=== PATIENT | female | born 1955 | race Caucasian/White ===

== ENCOUNTER 2018-02-08 08:37 | Inpatient (IN) | payer OTHER ==
[~2018-02-08 08:37] MED LIST: *PREOP 1000MG*TRANEX ACID/NS 100 ML IV ONE; TRANEXAMIC ACID 1,000 MG in NS (SYRINGE) 50 ML IV ONE
[2018-02-08] MEDS ORDERED: CHLORHEXIDINE GLUC HIBICLENS 118 ML BTL TP ONE (08:52)
[2018-02-08] MEDS ORDERED: THROMBIN (BOVINE) 20,000 UNIT VIAL TP ONE (08:52)
[2018-02-08] MEDS ORDERED: BUPIVACAINE 0.25% 30 ML SDV ONE (08:53)
[2018-02-08] MEDS ORDERED: CITRATE DEXTROSE SOLN 500 ML BAG ONE (08:53)
[2018-02-08] MEDS ORDERED: BACITRACIN 50,000 UNITS/10 ML SYR IRR ONE ×2 (08:54→11:57)
[2018-02-08] MEDS ORDERED: EPINEPHrine 1 MG/ML INJ ONE (08:54)
[2018-02-08] MEDS ORDERED: GABAPENTIN 300 MG CAP PO ONE ×2 (09:10→09:58)
[2018-02-08] MEDS ORDERED: morphINE PF 0.2 MG in SYRINGE INTRATHECAL 1 SYR IT ONE (09:10)
[2018-02-08] MEDS ORDERED: ceFAZolin 2 GM/SWFI 2 GM/20 ML SYR IVP ONE (09:10)
[2018-02-08] MEDS ORDERED: fentaNYL 50 MCG in SYRINGE INTRATHECAL 1 SYR IT ONE (09:10)
[2018-02-08] MEDS ORDERED: ACETAMINOPHEN 500 MG TAB PO ONE ×2 (09:10→09:58)
[2018-02-08] MEDS ORDERED: LR 1,000 ML IV ONE (09:11)
[2018-02-08] MEDS ORDERED: ALBUTEROL 3 ML DEYVIAL IH PRN (09:16)
[2018-02-08] MEDS ORDERED: PROMETHAZINE HCL 25 MG/ML INJ IVP PRN (09:16)
[2018-02-08] MEDS ORDERED: MIDAZOLAM 2 MG/2 ML VIAL IVP ONE (09:16)
[2018-02-08] MEDS ORDERED: fentaNYL 100 MCG/2 ML INJ IVP PRN (09:16)
[2018-02-08] MEDS ORDERED: NALOXONE HCL 0.4 MG/ML INJ IVP PRN ×3 (09:16→14:53)
[2018-02-08] MEDS ORDERED: LR 500 ML IV PRN (09:16)
[2018-02-08] MEDS ORDERED: HYDROmorphONE/DILAUDID 2 MG/ML INJ IVP PRN (09:16)
[2018-02-08] MEDS ORDERED: oxyCODONE IR 5 MG TAB PO PRN (09:16)
[2018-02-08] MEDS ORDERED: ONDANSETRON 4 MG/2 ML VIAL IVP PRN (09:16)
--- NOTE | 2018-02-08 09:20 | PDANEPAE ---
ANE History of Present Illness Lumbar TLIF L3-4 ANE Past Medical History - Cardiovascular History Hx Hypertension: No Hx Arrhythmias: No Hx Chest Pain: No Hx Coronary Artery / Peripheral Vascular Disease: No Hx CHF / Valvular Disease: No Hx Palpitations: No Cardiovascular History Comment: ONGOING PAIN L CHEST ABOVE L BREAST/L SHOULDER- TX W/GABAPENTIN- NERVE PAIN. HYPOTENSION - Pulmonary History Hx COPD: No Hx Asthma/Reactive Airway Disease: No Hx Recent Upper Respiratory Infection: No Hx Oxygen in Use at Home: No Hx Sleep Apnea: No Sleep Apnea Screening Result - Last Documented: Negative - Neurologic History Hx Cerebrovascular Accident: No Hx Seizures: No Hx Dementia: No Neurologic History Comment: MIGRAINE H/A - Endocrine History Hx Diabetes: No - Renal History Hx Renal Disorders: No - Liver History Hx Hepatic Disorders: No - Neurological & Psychiatric Hx Hx Neurological and Psychiatric Disorders: Yes Neurological / Psychiatric History Comment: "TIGHTNESS" IN LOW BACK -PAIN RADIATES DOWN R BUTTOCK, R LEG. CAN RADIATE TO L SIDE. TINGLING IN THIGHS. - Cancer History Hx Cancer: No - Congenital Disorder History Hx Congenital Disorders: No - GI History Hx Gastrointestinal Disorders: No - Other Health History Other Health History: "NO BREAKOUT W/SHINGLES SINCE AGE 28 -DID HAVE BREAKOUT IN BACK AREA" - Chronic Pain History Chronic Pain: Yes (LOW BACK/R LEG) - Surgical History Prior Surgeries: BILAT BREASTS:REMOVED ENCASED IMPLANTS, RECONSTRUCTED BILAT BREAST. L4/L5 FUSION. BREAST SX X3. HYSTERECTOMY. BILAT OOPHORECTOMY. T.L. FEET SX ANE Review of Systems Review of Systems: - Exercise capacity METS (RN): 4 METS ANE Patient History - Allergies Allergies/Adverse Reactions: adhesive tape Allergy (Verified 02/02/18 10:29) BEE STING Allergy (Uncoded 01/26/18 11:33) - Home Medications Home Medications: Acetaminophen [Tylenol 325mg (*)] 325 mg PO Q6 PRN 01/26/18 [Last Taken 1 Week Ago ~02/01/18] EPINEPHrine [Epipen 0.3 MG] 0.3 mg IM ONCE PRN 01/26/18 [Last Taken 1 Year Ago ~ 02/08/17] Gabapentin [Neurontin 400 MG (*)] 800 mg PO TID 01/26/18 [Last Taken 02/07/18 19 :30] Sumatriptan Succinate [Imitrex] 100 mg PO DAILY PRN 01/26/18 [Last Taken 1 Week Ago ~02/01/18] Tears/Dextran 70/Hypromellose [Natural Balance Tears (*)] 1 drop EACHEYE Q2 PRN 01/26/18 [Last Taken 02/07/18 20:00] Topiramate [Topamax 25MG (*)] 75 mg PO HS 01/26/18 [Last Taken 02/07/18 19:30] - Smoking Hx Smoking Status: Never smoked ANE Labs/Vital Signs - Vital Signs Height: 167.64 cm Weight: 77.564 kg
[2018-02-08] MEDS: LIDOCAINE 1% 2 ML INJ ID PRN ×2 (09:28→09:38)
[2018-02-08] MEDS ORDERED: REMIFENTANIL HCL 1 MG VIAL ONE ×3 (09:51→09:52)
[2018-02-08] MEDS ORDERED: PROPOFOL/EMULSION 500 MG/50 ML BOTTLE IV ONE ×3 (09:52)
[2018-02-08] MEDS ORDERED: ceFAZolin 2 GM/DEXTROSE 100 ML IV ONE (09:58)
[2018-02-08] MEDS ORDERED: TRANEXAMIC ACID 1,000 MG in NS (SYRINGE) 50 ML IV ONE (09:58)
--- NOTE | 2018-02-08 09:59 | PDHPUP ---
History & Physical Update H&P update statement: This history and physical update is based on an assessment of the patient which was completed after admission or registration (within 24 hours), but prior to the surgery/procedure. H&P update: H&P reviewed & patient examined, no change in patient's condition since H&P completed
[2018-02-08] MEDS ORDERED: PHENYLEPHRINE HCL 100 MCG/ML SYR ONE ×2 (12:36)
[2018-02-08] MEDS ORDERED: ceFAZolin 1 GM VIAL ONE (13:56)
[2018-02-08] MEDS ORDERED: ONDANSETRON 4 MG/2 ML VIAL ONE (13:59)
[2018-02-08] MEDS ORDERED: RANITIDINE 50 MG/2 ML VIAL ONE (13:59)
[2018-02-08] MEDS ORDERED: DEXAMETHASONE 4 MG/ML VIAL ONE ×2 (13:59)
[2018-02-08] MEDS ORDERED: MAGNESIUM HYDROXIDE 30 ML UDCUP PO PRN (14:16)
[2018-02-08] MEDS ORDERED: ONDANSETRON DISINTEGRATING 4 MG TAB PO PRN (14:16)
[2018-02-08] MEDS ORDERED: LACTULOSE 20 GM/30 ML UDCUP PO PRN (14:16)
[2018-02-08] MEDS ORDERED: HYDROCODONE/APAP 5/325 TAB PO PRN (14:16)
[2018-02-08] MEDS ORDERED: diphenhydrAMINE 25 MG CAP PO PRN (14:16)
[2018-02-08] MEDS ORDERED: morphINE PCA 30 MG/30 ML PCA IV PRN (14:16)
[2018-02-08] MEDS ORDERED: TEARS/DEXTRAN 70/HYPROMELLOSE 15 ML OPHT.BTL EACHEYE PRN (14:16)
[2018-02-08] MEDS ORDERED: BISACODYL 10 MG SUPP PR PRN (14:16)
--- NOTE | 2018-02-08 14:22 | POSTOPPROG ---
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
--- NOTE | 2018-02-08 14:23 | SOAPPROG ---
SOAP Progress Note Assessment/Plan: Assessment: 63 yo F sp L3/4 TLIF, L4/5 hardware removal, L3-5 fusion Plan: stable PT/OT LSO brace out of bed lovenox starts POD #1 please call with neuro changes seen by DR Gillette 02/08/18 14:22 Subjective: + back pain, no leg pain Objective: Vital Signs Temp Pulse Resp BP Pulse Ox 36.4 C 52 L 16 132/72 H 97 02/08/18 09:39 02/08/18 09:39 02/08/18 09:39 02/08/18 09:39 02/08/18 09:39 awake, alert PERRL, EOMI EDMUNDO x 4, 5/5 LE + light touch ICD10 Worksheet Patient Problems: Problems Problem Status Onset Fusion of spine of lumbar region Acute - ICD10 Problem Qualifiers (1) Fusion of spine of lumbar region
--- NOTE | 2018-02-08 14:25 | POSTANESTH ---
Post Anesthetic Evaluation Cardiovascular Status: Normal, Stable Respiratory Status: Similar to Pre-op Cond. Level of Consciousness/Mental Status: Can Participate in Eval, Alert and Oriented Pain Control: Adequate, Prn Tx Ordered Nausea/Vomiting Control: Adequate, Prn Tx Ordered Complications Possibly Related to Anesthesia: None Noted
[2018-02-08] MEDS ORDERED: NS W/ 20 KCl/L 1,000 ML IV SCH (14:30)
[2018-02-08] MEDS ORDERED: HYDROmorphONE/DILAUDID 1 MG/ML INJ ONE (14:41)
[2018-02-08] MEDS ORDERED: fentaNYL 100 MCG/2 ML INJ ONE (14:42)
[2018-02-08] MEDS: fentaNYL 100 MCG/2 ML INJ IVP PRN ×2 (14:45→15:31)
[2018-02-08] MEDS: HYDROmorphONE/DILAUDID 2 MG/ML INJ IVP PRN ×2 (14:54→15:16)
--- NOTE | 2018-02-08 15:24 | GOP ---
[f rep st] OPERATIVE REPORT DATE OF OPERATION: 02/08/2018 SURGEON: Tom Cerda MD DEPARTMENT COORDINATOR: Terence Kang P.A.-C. ANESTHESIA: General endotracheal. PREOPERATIVE DIAGNOSIS: Severe adjacent level degeneration and critical spinal stenosis at L3-4, sta tus post prior instrumented L4-5 decompression and stabilization. Intractable back pain and right gr eater than left lower extremity radiculopathy. Intractable neurogenic claudication. Failed conserva tive care. POSTOPERATIVE DIAGNOSIS: Severe adjacent level degeneration and critical spinal stenosis at L3-4, st atus post prior instrumented L4-5 decompression and stabilization. Intractable back pain and right g reater than left lower extremity radiculopathy. Intractable neurogenic claudication. Failed conserv ative care. PROCEDURE PERFORMED: Removal of posterior nonsegmental (pedicle screw and axle device) fixation at L 4-5 with exploration of spinal fusion at the same level and re-instrumentation from L3 to L5 with pos terior segmental (pedicle screw) fixation. L3-5 posterior lateral fusion. L3-4 right-sided far late ral transpedicular decompression with L3-4 posterior/transforaminal lumbar interbody fusion with 2 st ructural PEEK interbody spacers, local autograft and bone morphogenic protein. Use of intraoperative microscopy, fluoroscopy and computer volumetric stereotactic navigation with intraoperative neurophy siologic testing. Injection of intrathecal narcotic analgesics and subcutaneous and intramuscular lo imtiaz anesthesia for postoperative pain control. FINDINGS: ESTIMATED BLOOD LOSS: 275 cc. INDICATIONS: The patient is a 63-year-old woman with intractable low back pain and right lower great er than left lower extremity radicular and neurogenic claudication symptoms secondary to severe degen erative joint disease and critical spinal stenosis at L3-4, status post prior L4-5 instrumented decom pression and fusion. She presents now for removal and replacement of instrumentation and extension o f the decompression and fusion stabilization. DESCRIPTION OF PROCEDURE: After informed consent was obtained, patient was taken to the operating ro om and placed in a prone position on the Bradley table. The lumbosacral area was prepped and draped in a sterile fashion. After fluoroscopic localization of the correct levels, the subcutaneous and in tramuscular tissues were infiltrated with local anesthesia. A midline linear incision was then creat ed from approximately L3-L5. This was carried down to the fascial layer, which was incised using the monopolar electrocautery down the spinous processes and out the lamina bilaterally. Intraoperative fluoroscopy was again utilized to verify the correct levels. Following this, the prior instrumentati on was identified at L4-5 and carefully removed and the prior fusion explored and inspected and noted to be solid. The microscope was then brought in and a right-sided far lateral transpedicular decomp ression was performed at the L3-4 level with complete unroofing of the facet joint and neural foramen at L3 and L4 and a redo posterior hemilaminectomy and foraminotomy was performed at the L4-5 level i n order to ensure that this is not contributing to her symptoms. Following adequate decompression, [employer] neuronavigational system was brought in and using computer volumetric stereotactic navigat ion, pedicle screws were placed at L3 and L4 bilaterally and L5 on the right. The rods were then janis marina and secured under distraction, during which time a complete diskectomy was performed at the L3-4 level with preparation of the endplates and placement of 2 structural PEEK interbody spacers, local a utograft and bone morphogenic protein as well as morselized allograft for an L3-4 posterior/transfora ashley lumbar interbody fusion. The screw and jennifer system were then placed in a slight amount of compr ession across the interspace and the wound was copiously irrigated again with antibiotic irrigation a nd meticulous hemostasis was achieved. The remaining facet joints and lamina were then extensively d ecorticated especially on the left from L3-L5 and the residual local autograft along with bone morpho genic protein and morselized allograft was placed out laterally for posterolateral fusion at L3-4 and L4-5. A drain was then placed and after re-verification of good position of the screws, rods and in terbody spacers using biplanar fluoroscopy, the wound was closed in layered fashion using interrupted Vicryl sutures followed by Steri-Strips on the skin. COMPLICATIONS: None. DISPOSITION: The patient was extubated and transferred to the recovery room in stable condition. /[id number]/MODL
[2018-02-08] MEDS ORDERED: DIAZEPAM 5 MG TAB ONE (15:46)
[2018-02-08] MEDS: DIAZEPAM 5 MG TAB PO PRN (15:47)
[2018-02-08] MEDS ORDERED: SUMAtriptan 50 MG TAB PO PRN (16:00)
[2018-02-08] MEDS: POLYETHYLENE GLYCOL 3350 17 GM PKT PO SCH ×2 (17:03→21:28)
[2018-02-08] MEDS: GABAPENTIN 400 MG CAP PO SCH ×2 (17:03→21:27)
[2018-02-08] MEDS: ceFAZolin 2 GM in D5W 100 ML IV SCH (18:37)
[2018-02-08] MEDS: oxyCODONE IR 5 MG TAB PO PRN ×2 (18:50→23:45)
--- NOTE | 2018-02-08 19:00 | PDMN ---
Medical Necessity Medical necessity: IP surgery per [facility] cpt 56638, 70680, [id number], 29892 TLIF, hardware removal, exploration of fusion
[2018-02-08] MEDS: SENNOSIDES/DOCUSATE SODIUM TAB PO SCH (21:27)
[2018-02-08] MEDS: TOPIRAMATE 25 MG TAB PO SCH (21:27)
[2018-02-08] MEDS: METHOCARBAMOL 750 MG TAB PO PRN (21:27)
[2018-02-08] MEDS: FAMOTIDINE 20 MG TAB PO SCH (21:27)
[2018-02-08] MEDS: morphINE SR 30 MG TAB PO SCH (21:27)
[2018-02-08] MEDS: ACETAMINOPHEN 500 MG TAB PO SCH (21:28)
[2018-02-08] MEDS ORDERED: ceFAZolin 2 GM/DEXTROSE 100 ML IV SCH (22:00)
[2018-02-09] MEDS: DIAZEPAM 5 MG TAB PO PRN (02:53)
[2018-02-09] MEDS: ceFAZolin 2 GM in D5W 100 ML IV SCH (02:53)
[2018-02-09 05:09] LABS: PLATELET COUNT 229 10^3/uL (150-400)
[2018-02-09] MEDS: oxyCODONE IR 5 MG TAB PO PRN ×2 (05:29→16:16)
[2018-02-09] MEDS: METHOCARBAMOL 750 MG TAB PO PRN ×2 (05:29→12:23)
[2018-02-09] MEDS: ACETAMINOPHEN 500 MG TAB PO SCH ×3 (05:30→21:57)
--- NOTE | 2018-02-09 07:16 | SOAPPROG ---
SOAP Progress Note Assessment/Plan: Assessment: 63 yo F POD #2 L3/4 TLIF, L4/5 hardware removal, L3-5 fusion Plan: stable and doing well overall PT/OT x-rays today HARPER x 1 to thumbprint suction LSO brace out of bed scd/sukhwinder/lovenox for dvt prophylaxis please call with neuro changes seen by DR Gillette 02/08/18 14:22 02/09/18 07:15 02/09/18 07:16 Subjective: continued back pain, no leg pain. no weakness. Objective: Vital Signs Temp Pulse Resp BP Pulse Ox 36 C 50 L 16 101/58 L 98 02/09/18 05:46 02/09/18 04:51 02/09/18 04:51 02/09/18 04:51 02/09/18 04:51 Laboratory Results 02/09/18 04:53 02/09/18 04:53 02/08/18 02/09/18 02/10/18 05:59 05:59 05:59 Intake Total 3743 Output Total 5335 Balance -1592 AAOX4, +FC PERRL, EOMI, no facial droop 5/5 + light touch C/D/I ICD10 Worksheet Patient Problems: Problems Problem Status Onset Fusion of spine of lumbar region Acute - ICD10 Problem Qualifiers (1) Fusion of spine of lumbar region
[2018-02-09] MEDS: ENOXAPARIN 40 MG/0.4 ML SYR SC SCH (09:17)
[2018-02-09] MEDS: morphINE SR 30 MG TAB PO SCH ×2 (09:18→20:19)
[2018-02-09] MEDS: GABAPENTIN 400 MG CAP PO SCH ×3 (09:18→21:58)
[2018-02-09] MEDS: FAMOTIDINE 20 MG TAB PO SCH ×2 (09:18→20:20)
[2018-02-09] MEDS: POLYETHYLENE GLYCOL 3350 17 GM PKT PO SCH ×3 (09:18→21:59)
[2018-02-09] MEDS: SENNOSIDES/DOCUSATE SODIUM TAB PO SCH ×2 (09:18→20:20)
--- NOTE | 2018-02-09 12:08 | ASMTCMCOM ---
CM Note CM Note Notes: Patient is POD #2 L3/4 TLIF, L4/5 hardware removal, L3-5 fusion. She is stable and doign well overall. She lives independently with her . PT/OT evals are pending, but per RN, patient may not have any discharge needs. Case Management is available to assist if needed. Date Signed: 02/09/2018 12:07 PM Electronically Signed By:Deedee Leblanc RN
[2018-02-09] MEDS: TOPIRAMATE 25 MG TAB PO SCH (20:20)
[2018-02-09] MEDS: ONDANSETRON 4 MG/2 ML VIAL IVP PRN (22:56)
[2018-02-10] MEDS: ONDANSETRON 4 MG/2 ML VIAL IVP PRN (05:16)
[2018-02-10] MEDS: oxyCODONE IR 5 MG TAB PO PRN ×2 (05:20→21:03)
[2018-02-10] MEDS: METHOCARBAMOL 750 MG TAB PO PRN ×2 (05:20→21:03)
[2018-02-10] MEDS: ACETAMINOPHEN 500 MG TAB PO SCH ×3 (06:00→21:02)
--- NOTE | 2018-02-10 08:21 | CPEKG ---
Heart Rate: 74 RR Interval: 811 P-R Interval: 152 QRSD Interval: 94 QT Interval: 424 QTC Interval: 471 P Seaside: 37 QRS Seaside: 28 T Wave Seaside: 47 EKG Severity - OTHERWISE NORMAL ECG - EKG Impression: SINUS RHYTHM EKG Impression: VENTRICULAR PREMATURE COMPLEX Electronically Signed By: Brayden Hyde 11-Feb-2018 15:28:57
[2018-02-10] MEDS ORDERED: PROMETHAZINE HCL 25 MG/ML INJ ONE (08:26)
[2018-02-10 08:27] LABS: PLATELET COUNT 208 10^3/uL (150-400)
[2018-02-10 08:35] LABS: INR 0.97 (0.83-1.16); PROTIME(PATIENT) 13.1 SEC (12.0-15.0)
[2018-02-10] MEDS ORDERED: NS 1,000 ML IV ONE (08:42)
[2018-02-10] MEDS ORDERED: ATROPINE SULFATE 1 MG/10 ML SYR ONE (09:29)
--- NOTE | 2018-02-10 09:40 | SOAPPROG ---
SOAP Progress Note Assessment/Plan: Assessment: 63 yo F POD #2 L3/4 TLIF, L4/5 hardware removal, L3-5 fusion Plan: Episode of junctional bradycardia this am with HR in 20-30s and BP of 44/22. Stat team activated and HR improved with 0.5 mg of atropine IVF rapid infusion with improved BP. Dr Harper consulted for symptomatc bradycardia PT/OT x-rays look good HARPER x 1 to thumbprint suction LSO brace out of bed scd/sukhwinder/lovenox for dvt prophylaxis please call with neuro changes discussed with DR Gillette 02/08/18 14:22 02/09/18 07:15 02/09/18 07:16 02/10/18 09:37 02/10/18 09:39 Subjective: minimal back pain. no leg pain. Nausea this am. No chest pain or shortness of breath. Objective: Vital Signs Temp Pulse Resp BP Pulse Ox 36.4 C 75 8 L 85/59 L 99 02/10/18 08:00 02/10/18 08:00 02/10/18 08:00 02/10/18 08:00 02/10/18 08:00 Laboratory Results 02/10/18 08:20 02/10/18 08:20 02/09/18 02/10/18 02/11/18 05:59 05:59 05:59 Intake Total 3743 700 500 Output Total 5335 700 Balance -1592 0 500 PT 13.1 SEC (12.0-15.0) 02/10/18 08:20 INR 0.97 (0.83-1.16) 02/10/18 08:20 awake, alert PERRL, no facial droop EDMUNDO x 4 + light touch ICD10 Worksheet Patient Problems: Problems Problem Status Onset Fusion of spine of lumbar region Acute - ICD10 Problem Qualifiers (1) Fusion of spine of lumbar region
--- NOTE | 2018-02-10 10:02 | GCON ---
[f rep st] CONSULTATION DATE OF CONSULTATION: 02/10/2018 REASON FOR CONSULTATION: I was asked by Dr. Cerda to see the patient in regard to a syncopal episode with associated bradycardia and hypotension. HISTORY OF PRESENT ILLNESS: This is a 63-year-old female who underwent a lumbar spine surgery [address] Cerda[address] This involved hardware removal at L4-5, 3-4, with an L3 to 5 fusion. The re were no complications reported. Notes from yesterday and even this morning indicate that she was stable and doing well overall. She got up to go to the bathroom this morning, accompanied by her siri se, came back to the bed, was feeling nauseous, and had a syncopal episode. She describes it as the room going black. There are no permanent records of this, but reports of her pulse being around 30 w ith a junctional bradycardia on cardiac monitoring. Her blood pressure was reported as around 45/20 at the time. She received 0.5 mg of atropine, as well as a liter of normal saline. I was then shore d urgently to bedside and noted her to be lying in bed, alert and oriented, with a blood pressure of about 80/50. She was feeling much better at the time. She denied any chest pain or shortness of ze ath. She tells me that she had 1 episode of syncope about 19 months ago after a previous surgery. S he also notes that she does feel short of breath after walking her dogs, although her exercise tolera nce has not changed, and she is able to walk a few miles at a good pace without getting short of percy th or having any chest pain at baseline. She has no known cardiac history. She has never seen a car diologist, never had a stress test, never had any cardiac monitoring. I was called to re-evaluate the patient about 30 minutes after I initially saw her for ongoing somnol ence. She had received some Phenergan for nausea. When I re-evaluated her, she is notably different , with no focal neurologic deficits, although she is quite somnolent and falling asleep. PAST MEDICAL/SURGICAL HISTORY: 1. Migraines. 2. Previous L4-5 TLIF in 2016. MEDICATIONS: Please see medication reconciliation. ALLERGIES: Adhesive tape and bee stings. SOCIAL HISTORY: She lives on [address] [place] with her . She does not drink or smoke. FAMILY HISTORY: She denies any early cardiac disease. REVIEW OF SYSTEMS: Ten-point review of systems is conducted and is negative, except per HPI. PHYSICAL EXAM: VITAL SIGNS: Blood pressure as reported per HPI. When I was seeing her, about 80/50 . Heart rate is around 78, respiration rate 16, saturating at 100% on 2 L. She was recorded on room air overnight. Temperature is 36.4. GENERAL: The patient is a pleasant female who is in no acute distress. HEENT: Normocephalic, atraumatic. CARDIOVASCULAR: Regular rate and rhythm. There are n o murmurs, rubs, or gallops, although she has a distant S1 and S2. PULMONARY: Lungs clear to auscul tation bilaterally. She is breathing comfortably. ABDOMEN: Soft, nontender, nondistended. SKIN: No rash. : Exam shows no Stephens. NEUROLOGIC: Exam showed her to be initially alert and oriented x3. Cranial nerves 2-12 are grossly intact. Motor is about 4/5 but symmetric bilaterally in upper a nd lower extremities. PSYCHIATRIC: Exam shows a normal mood and affect. LABS: Hemoglobin 13, stable from the day previous. INR 0.9. Basic metabolic panel is normal. LFTs are normal. Troponin is negative. Albumin is 2.9. DATA: 1. I personally reviewed and interpreted her ECG. This shows sinus rhythm. She has a premature atr ial beat. There are no ST changes or signs of an old VA, including Q-waves or abnormal T-waves. 2. I discussed this with Terence Kang. 3. I reviewed her postoperative lumbar spine film that shows no hardware complication in her surgery . IMPRESSION/PLAN: 1. Syncope: Most likely, this is vagal given the overall setting of nausea, postop, increased narco tic use, hypotension and bradycardia. Given how dramatic this was, will work up further at this poin t. I have ordered stat echocardiogram, stat CT angio of her chest, trend troponins, telemetry monito ring, transfer to ICU. I will follow up on these studies as ordered. She has received 1 L of normal saline. I will give her another. She is now quite somnolent. I suspect that long-acting morphine is playing a big role in this as well. I have stopped this for now, as well as other sedating medica tions. She is opiate naive per her med rec. I do not suspect an acute stroke, although I will order a head CT given her somnolence. She has nothing focal to indicate a stroke, and risks of tPA far ou tweigh any benefits at this point. 2. Migraines: Continue her home medications. BILLING: I spent a total of 55 minutes of critical care time managing the patient for above syncope, marked hypotension, and bradycardia. Thank you for involving Hospital Medicine in the care of the patient. We will continue to follow trey jacobo. /[id number]/MODL
[2018-02-10] MEDS ORDERED: IOPAMIDOL (ISOVUE 370) 100 ML BTL IV ONE (11:54)
--- NOTE | 2018-02-10 11:54 | ECHO ---
[email or web address] [address] Main: [phone] Fax: Transthoracic Echocardiogram Name: SHAKIRA ROMAN MR#: [id number] Study Date: 02/10/2018 Study Time: 09:05 AM Date of : 1955 Age: 63 year(s) Height: 167.6 cm (66 in.) Weight: 77.57 kg (171 lb.) BSA: 1.87 m2 Gender: Female Examination: Echo Indication: stat echo for syncope Image Quality: Contrast: Requested by: Prashant Harper BP: 82 mmHg/54 mmHg Heart Rate: Rhythm: Normal sinus rhythm Indication: stat echo for syncope Procedure Staff Senior Medical Transcriptionist: Coleen Garcia [facility] Reading Physician: Mazin Kennedy MD Requesting Provider: Conclusions: No pericardial effusion. Preserved left ventricular systolic function. Flattening of the interventricular septum during respiration. Normal right ventricular size and function. Right ventricular systolic pressure 29 mm of mercury. Measurements: Chambers Valvular Assessment AV/MV Valvular Assessment TV/PV Normal Normal Normal Name Value Range Name Value Range Name Value Range Ao Samia (MM): 3.0 cm (2.2 cm-3.7 AV Vmax: 1.24 m/s (1 m/s-1.7 TR Vmax: 2.44 mm/s ( - ) cm) m/s) TR PGmax: 24 mmHg ( - ) IVSd (2D): 0.9 cm (0.6 cm-1.1 AV maxP mmHg ( - ) syst. PAP: 29 mmHg ( - ) cm) LVOT Vmax: 0.89 m/s (0.7 m/s-1.1 PV Vmax: 1.00 m/s (0.6 m/s-0.9 LVDd (2D): 4.8 cm (3.9 cm-5.3 m/s) m/s) cm) MV E Vmax: 0.74 m/s ( - ) PV PGmax: 4 mmHg ( - ) LVDs (2D): 3.5 cm (2.1 cm-4 MV A Vmax: 0.81 m/s ( - ) cm) MV E/A: 0.91 ( - ) LVPWd (2D): 1.0 cm ( - ) LVEF (2D): 54 (>=54 %) Continued Measurements: Valvular Assessment AV/MV Valvular Assessment TV/PV Name Value Name Value MV DecTime: 208 m/s CVP (est.): 5 mmHg MV E/E' Lateral: 9.90 Additional Vessels Name Value Patient: SHAKIRA ROMAN Study Date: 02/10/2018 Page 1 of 2 09:05 AM Ao Ascendin.2 cm Findings: Left Ventricle: Normal size left ventricle. No LV hypertrophy. Normal global systolic LV function. EF is 54 %. IVS was flattened when the patient was snoring. Right Ventricle: Normal size right ventricle. Normal RV function. Left Atrium: The left atrium is normal in size. Right Atrium: The right atrium is normal in size. Mitral Valve: The mitral valve is normal in appearance. Trivial to mild mitral regurgitation. No mitral stenosis is present. Aortic Valve: The aortic valve is tri-leaflet and functions normally. There is no aortic valve regurgitation. No aortic valve stenosis is present. Tricuspid Valve: The tricuspid valve is normal in appearance and function. Mild tricuspid regurgitation is present. The pulmonary artery pressure is normal. Right ventricular systolic pressure measures 29mmHg. The tricuspid regurgitation was trivial then increased to mild to moderate when snoring. Pulmonic Valve: The pulmonic valve is normal in appearance and function. Trivial to mild pulmonic valve regurgitation. Aorta: Normal size aortic root measuring 3.0 cm. Normal size ascending aorta measuring 3.2 cm. Pericardium: No pericardial effusion. (No Signature Object) Patient: SHAKIRA ROMAN Study Date: 02/10/2018 Page 2 of 2 09:05 AM [id number]
--- NOTE | 2018-02-10 12:58 | GCON ---
[f rep st] CONSULTATION CRITICAL CARE CONSULT DATE OF CONSULTATION: 02/10/2018 HISTORY OF PRESENT ILLNESS: This patient is a 63-year-old female who underwent spine surgery 2 days ago involving the L3 through L5 region. There was hardware removal followed by posterior fusion. Th ere were no intraoperative complications. She appeared to be doing quite well until early this morni ng. She was returning back to bed from going to the bathroom and had a syncopal event reportedly ass ociated with a blood pressure in the 40s and a heart rate of about 30. She quickly recovered from th is and apparently was speaking to the hospitalist, who was called on scene, and subsequently had Phen ergan and became quite somnolent. She has never had episodes like this in the past. There is no kno wn cardiac history and was appropriately treated with appropriate prophylaxis. She was transferred t o the intensive care unit where I saw her. She was unable to answer any questions, though she did ar ouse fairly easily. REVIEW OF SYSTEMS: Otherwise negative. PAST MEDICAL HISTORY: Includes breast cancer, migraines, fibroids, and endometriosis. PAST SURGICAL HISTORY: 1. Includes bilateral mastectomy as well as reconstruction with subsequent removal. 2. YAMIL-BSO. 3. Foot surgery in the past and back surgery in 2016 as well as the current surgical endeavor. SOCIAL HISTORY: She is a nonsmoker. No alcohol or IV drug use. FAMILY HISTORY: Noncontributory. MEDICATIONS: At this time include Dulcolax, Celebrex, Lovenox, Pepcid, Neurontin, Robaxin, morphine, Zofran, oxycodone, MiraLAX, Senokot, Imitrex, and Topamax. PHYSICAL EXAM: VITAL SIGNS: At the time of my evaluation, blood pressure was 79/48. Heart rate was 75. Respirations were about 10, but oxygen saturation was 99% on 2 L. GENERAL APPEARANCE: She was an obese woman who was very somnolent and nonverbal, though she did arouse to voice only. HEENT: P upils were equally round and reactive to light. Nonicteric and noninjected. Mucous membranes were m oist without erythema or exudate. NECK: Supple without adenopathy or jugular venous distention. SHARON NGS: Breath sounds were clear to auscultation bilaterally without wheezes, rubs, or rales. HEART: Regular rate and rhythm without obvious murmur. ABDOMEN: Soft, nontender, nondistended without hepa tosplenomegaly and hypoactive bowel sounds. EXTREMITIES: Show no clubbing, cyanosis, or edema. KATHRYN ROLOGIC: Grossly normal, though her inability to participate made this difficult. SKIN: Warm and d ry without evidence of rash or breakdown. OBJECTIVE DATA: Includes a white count of 8.9, hematocrit of 40.6, platelets of 208. Basic metaboli c panel was normal. Liver function tests were normal. Troponin was negative. A chest x-ray showed diffuse infiltrates. A CT angiogram is pending as is a head CT at this time. ASSESSMENT AND PLAN: 1. Syncopal event. This was likely a vagal event since it was associated with going to the bathroom , although she did have a relatively low heart rate in the low 50s for several days of uncertain etio logy. If it was, in fact, a vasovagal event, she should recover fairly quickly, which has been compl icated by the introduction of long-acting opiates as well as Phenergan. [facility]. I do not think she needs an airway at this time, but certainly needs her bloo d pressure to be addressed. Will also follow up on the studies that are pending including the imagin g ordered by Dr. Harper. 2. Hypotension. She may be hypovolemic. This does seem to be persisting. She has gotten a liter o f fluid prior to the intensive care unit about two thirds of a liter here. Will use a pressure bag t o increase the flow rate and monitor for changes. I think she needs to have a peripherally inserted central catheter line placed should she need pressors in the near future. I do not see any evidence of septic shock, acute coronary syndrome, or adrenal insufficiency. 3. Migraine. She does have Imitrex as p.r.n. I do not think she is going to need that at the [facility]. 4. Back surgery. Appears to be stable at this time. /[id number]/MODL
[2018-02-10] MEDS: morphINE SR 30 MG TAB PO SCH (14:34)
[2018-02-10] MEDS: FAMOTIDINE 20 MG TAB PO SCH ×2 (16:07→21:00)
[2018-02-10] MEDS: POLYETHYLENE GLYCOL 3350 17 GM PKT PO SCH ×3 (16:08→23:01)
[2018-02-10] MEDS: SENNOSIDES/DOCUSATE SODIUM TAB PO SCH ×2 (16:08→20:56)
[2018-02-10] MEDS: GABAPENTIN 400 MG CAP PO SCH ×3 (16:08→21:02)
[2018-02-10] MEDS: ENOXAPARIN 40 MG/0.4 ML SYR SC SCH (16:08)
[2018-02-10] MEDS: TOPIRAMATE 25 MG TAB PO SCH (21:01)
[2018-02-11] MEDS: oxyCODONE IR 5 MG TAB PO PRN (04:47)
[2018-02-11] MEDS: ACETAMINOPHEN 500 MG TAB PO SCH ×3 (05:54→21:25)
--- NOTE | 2018-02-11 07:22 | SOAPPROG ---
SOAP Progress Note Assessment/Plan: Assessment: 63 yo F POD #3 L3/4 TLIF, L4/5 hardware removal, L3-5 fusion Plan: neuro: stable and doinge well overall vagal episode 02/10: HR/BP improved, medical workup negative so far, appreciate help from Hospitalists PT/OT x-rays look good HARPER x 1 to thumbprint suction LSO brace out of bed scd/sukhwinder/lovenox for dvt prophylaxis ok to transfer to floor/tele if ok with Dr Harper patient may need SNF/Rehab placement please call with neuro changes discussed with DR Gillette 02/08/18 14:22 02/09/18 07:15 02/09/18 07:16 02/10/18 09:37 02/10/18 09:39 02/11/18 07:21 Subjective: back pain improving, no leg pain, no weakness. Objective: Vital Signs Temp Pulse Resp BP Pulse Ox 36.9 C 87 19 101/52 L 97 02/11/18 04:00 02/11/18 06:00 02/11/18 06:00 02/11/18 06:00 02/11/18 06:00 Laboratory Results 02/10/18 08:20 02/11/18 04:20 02/10/18 02/11/18 02/12/18 05:59 05:59 05:59 Intake Total 700 1850 Output Total 700 1500 Balance 0 350 PT 13.1 SEC (12.0-15.0) 02/10/18 08:20 INR 0.97 (0.83-1.16) 02/10/18 08:20 AAOX4, +FC PERRL, EOMI, no facial droop 5/5 + light touch C/D/I ICD10 Worksheet Patient Problems: Problems Problem Status Onset Fusion of spine of lumbar region Acute - ICD10 Problem Qualifiers (1) Fusion of spine of lumbar region
[2018-02-11] MEDS: ENOXAPARIN 40 MG/0.4 ML SYR SC SCH (08:35)
[2018-02-11] MEDS: GABAPENTIN 400 MG CAP PO SCH ×3 (08:35→21:24)
[2018-02-11] MEDS: FAMOTIDINE 20 MG TAB PO SCH ×2 (08:35→20:00)
[2018-02-11] MEDS: POLYETHYLENE GLYCOL 3350 17 GM PKT PO SCH ×3 (09:21→20:01)
[2018-02-11] MEDS: SENNOSIDES/DOCUSATE SODIUM TAB PO SCH ×2 (09:21→19:59)
--- NOTE | 2018-02-11 14:51 | HOSPPROG ---
Hospitalist Progress Note Assessment/Plan: 63 yo F s/p lumbar surgery and hardware removal with post op syncopal event # syncope: likely vagal given associated nausea/post operative setting with hypotension. Patient has been quite somnolent on narcotics and this likely contributed as well. Holding opiates as able, continue to monitor on tele. Echo , head CT, chest CTA all unremarkable. # hypotension: improved on lower doses of pain medications, monitoring, will start IVF as patient is not taking much PO # s/p lumbar surgery # migraine: improved Patient new to my care. Old records reviewed/ summarized as above. Care plan reviewed with Dr. Walter and multidisciplinary care team. Subjective: no acute overnight events, somnolent Objective: Vital Signs Temp Pulse Resp BP Pulse Ox 37 C 81 10 L 99/59 L 96 02/11/18 14:00 02/11/18 14:00 02/11/18 14:00 02/11/18 14:00 02/11/18 14:00 Laboratory Results 02/10/18 08:20 02/11/18 04:20 02/10/18 02/11/18 02/12/18 05:59 05:59 05:59 Intake Total 700 1850 Output Total 700 1500 Balance 0 350 PT 13.1 SEC (12.0-15.0) 02/10/18 08:20 INR 0.97 (0.83-1.16) 02/10/18 08:20 somnolent, arousable anicteric op clear rrr no mrg cta b soft nt nd no cce appropriate - Time Spent With Patient Time Spent with Patient: greater than 35 minutes Time Spent with Patient: Greater than 35 minutes spent on this patients care, greater than 50% of time spent counseling, educating, and coordinating care regarding the above mentioned plan. ICD10 Worksheet Patient Problems: Problems Problem Status Onset Fusion of spine of lumbar region Acute
--- NOTE | 2018-02-11 15:27 | PDINTPN ---
Cd Manufacturing Supervisor Progress Note Assessment/Plan: Assessment/plan: 63 F s/p L3-L5 surgery 02/08/18 without complications, but was treated with liberal narcotics, perhaps resulting in asymptomatic bradycardia. On 02/10 she was treated with 12.5 mg phenergan and had a syncopal episode on return from the bathroom associated with HR 30's and hypotension. She was treated with atropine and IVF then transferred to the ICU for ongoing monitoring since her BP remained a problem. She received additional IVF and remained somnolent in the ICU. A head CT, chest CTA, troponins, WBC, and echo have all been normal. * Syncope- may have been vagal given hemodynamic changes and negative workup, complicated by narcotics and phenergan. No signs of arrythmi or PE * Hypotension- her BP issues persisted perhaps from hypovolemia as she responded to IVF. Her pressure is a bit on the low side today so maintenance IVF were started. No sepsis, adrenal insufficiency, ACS, spinal shock. If her BP remains stable, she can transfer back to the floor Subjective: still somnolent but much better. Never needed pressors Objective: Vital Signs Temp Pulse Resp BP Pulse Ox 37 C 92 14 113/67 96 02/11/18 15:04 02/11/18 15:04 02/11/18 15:04 02/11/18 15:04 02/11/18 15:04 Laboratory Results 02/10/18 08:20 02/11/18 04:20 02/10/18 02/11/18 02/12/18 05:59 05:59 05:59 Intake Total 700 1850 Output Total 700 1500 Balance 0 350 PT 13.1 SEC (12.0-15.0) 02/10/18 08:20 INR 0.97 (0.83-1.16) 02/10/18 08:20 Physical Exam - Physical Exam General Appearance: no apparent distress, other (somnolent but easily aroused and answering questions) EENT: PERRL/EOMI Respiratory: normal breath sounds, No respiratory distress, No accessory muscle use Cardiac/Chest: regular rate, rhythm, No edema Abdomen: non-tender, soft, No distended Skin: normal color, warm/dry, No cyanosis Lymphatic: no adenopathy Extremities: No pedal edema Neuro/Psych: cognition abnormalities, No abnormal activity aid II-XII ICD10 Worksheet Patient Problems: Problems Problem Status Onset Fusion of spine of lumbar region Acute
[2018-02-11] MEDS: METHOCARBAMOL 750 MG TAB PO PRN (19:59)
[2018-02-11] MEDS: TOPIRAMATE 25 MG TAB PO SCH (20:00)
[2018-02-12] MEDS: oxyCODONE IR 5 MG TAB PO PRN (01:10)
[2018-02-12] MEDS: ACETAMINOPHEN 500 MG TAB PO SCH ×3 (05:44→21:09)
--- NOTE | 2018-02-12 07:20 | NEUSURGPN ---
Assessment/Plan: Assessment: 63 yo F POD #5 L3/4 TLIF, L4/5 hardware removal, L3-5 fusion Plan: neuro: stable, still with somnolence but is awakens easily. Will lower her home gabapentin dose to 600mg TID to see if this helps. Pt's is very concerned about her persistent sleepiness Labs reviewed and look ok vagal episode 02/10: HR/BP improved, medical workup negative so far, appreciate help from Hospitalists PT/OT x-rays look good HARPER x 1 to thumbprint suction - continue for now LSO brace out of bed scd/sukhwinder/lovenox for dvt prophylaxis ok to transfer to floor/tele if ok with hospitalists will likely need SNF/Rehab placement please call with neuro changes discussed with DR Gillette Subjective: Pt sleeping in bed, states "I'm tired" Objective: Sleepy but awakens easily States month is December and gets year wrong, knows she is in the hospital after back surgery VSS MAEx4 Motor 5/5 BLE JPx1 Incision dressed Urinary Catheter in Place: No Catheter Insertion Date: 02/08/18 - Physician Discussed Patient with : Prashant Neurosurgery Physical Exam - Vitals, I&O, Labs I and O 02/11/18 02/12/18 02/13/18 05:59 05:59 05:59 Intake Total 1850 975 Output Total 1500 690 Balance 350 285 Intake: Oral (ml) 850 975 IV Intake (ml) 1000 Output: Urine (ml) 1400 600 Catheter 1400 Toilet 600 HARPER Drain Output (ml) 100 90 #1 Back Bradley Chávez 100 90 Other: Intake Quantity Yes Sufficient Number of Voids Catheter 1 Toilet 1 Number of Stools Catheter 2 Toilet 1 Vital Signs Temp Pulse Resp BP Pulse Ox 37.0 C 83 12 109/62 95 02/12/18 04:00 02/12/18 04:00 02/12/18 04:00 02/12/18 04:00 02/12/18 04:00 Laboratory Results 02/10/18 08:20 02/11/18 04:20 ICD10 Worksheet Patient Problems: Problems Problem Status Onset Fusion of spine of lumbar region Acute
[2018-02-12] MEDS: FAMOTIDINE 20 MG TAB PO SCH ×2 (09:14→21:09)
[2018-02-12] MEDS: GABAPENTIN 300 MG CAP PO SCH ×3 (09:14→21:10)
[2018-02-12] MEDS: ENOXAPARIN 40 MG/0.4 ML SYR SC SCH (09:14)
[2018-02-12] MEDS: SENNOSIDES/DOCUSATE SODIUM TAB PO SCH ×2 (09:14→21:10)
[2018-02-12] MEDS: POLYETHYLENE GLYCOL 3350 17 GM PKT PO SCH ×4 (09:14→21:12)
--- NOTE | 2018-02-12 12:02 | PDINTPN ---
Rug Inspector Helper Progress Note Assessment/Plan: Assessment/plan: 63 F s/p L3-L5 surgery 02/08/18 without complications, but was treated with liberal narcotics, perhaps resulting in asymptomatic bradycardia. On 02/10 she was treated with 12.5 mg phenergan and had a syncopal episode on return from the bathroom associated with HR 30's and hypotension. She was treated with atropine and IVF then transferred to the ICU for ongoing monitoring since her BP remained a problem. She received additional IVF and remained somnolent in the ICU. A head CT, chest CTA, troponins, WBC, and echo have all been normal. * Syncope- may have been vagal given hemodynamic changes and negative workup, complicated by narcotics and phenergan. No signs of arrythmia or PE * Hypotension- her BP issues persisted perhaps from hypovolemia as she responded to IVF. * altered MS- MUCH better today. cancelled plans for MRI, ABG * OK for floor 02/12/18 12:00 Subjective: no events. Initially reported as still very somnolent, but recovered without intervention Objective: Vital Signs Temp Pulse Resp BP Pulse Ox 37.0 C 86 17 125/58 H 94 02/12/18 07:51 02/12/18 07:51 02/12/18 07:51 02/12/18 07:51 02/12/18 07:51 Laboratory Results 02/10/18 08:20 02/11/18 04:20 02/11/18 02/12/18 02/13/18 05:59 05:59 05:59 Intake Total 1850 975 Output Total 1500 690 Balance 350 285 PT 13.1 SEC (12.0-15.0) 02/10/18 08:20 INR 0.97 (0.83-1.16) 02/10/18 08:20 Physical Exam - Physical Exam General Appearance: alert, no apparent distress EENT: PERRL/EOMI Neck: supple Respiratory: lungs clear, normal breath sounds, No respiratory distress, No accessory muscle use Cardiac/Chest: regular rate, rhythm, No edema Abdomen: non-tender, soft, No distended Skin: normal color, warm/dry, No cyanosis Lymphatic: no adenopathy Extremities: No pedal edema Neuro/Psych: alert, normal mood/affect, oriented x 3 ICD10 Worksheet Patient Problems: Problems Problem Status Onset Fusion of spine of lumbar region Acute
--- NOTE | 2018-02-12 14:10 | HOSPPROG ---
Hospitalist Progress Note Assessment/Plan: 63 yo F s/p lumbar surgery and hardware removal with post op syncopal event # syncope: likely vagal given associated nausea/post operative setting with hypotension. Patient has been quite somnolent on narcotics and this likely contributed as well. Holding opiates as able, continue to monitor on tele. Echo , head CT, chest CTA all unremarkable. # acute encephalopathy: presume this is med related as now significantly improved overnight, much less somnolent and oriented appropriately # hypotension: improved on lower doses of pain medications, monitoring, continued on maintenance NS for now # s/p lumbar surgery # migraine: improved Care plan reviewed with Dr. Walter and multidisciplinary care team. Subjective: no significant overnight events, patient more awake and alert today Objective: Vital Signs Temp Pulse Resp BP Pulse Ox 36.9 C 100 17 133/76 H 90 L 02/12/18 12:00 02/12/18 12:41 02/12/18 12:00 02/12/18 12:00 02/12/18 12:41 Laboratory Results 02/10/18 08:20 02/11/18 04:20 02/11/18 02/12/18 02/13/18 05:59 05:59 05:59 Intake Total 1850 975 Output Total 1500 690 Balance 350 285 PT 13.1 SEC (12.0-15.0) 02/10/18 08:20 INR 0.97 (0.83-1.16) 02/10/18 08:20 somnolent, arousable anicteric op clear rrr no mrg cta b soft nt nd no cce appropriate ICD10 Worksheet Patient Problems: Problems Problem Status Onset Fusion of spine of lumbar region Acute
--- NOTE | 2018-02-12 14:27 | ASMTCMCOM ---
CM Note CM Note Notes: CM met w/ pt for dispo planning. PT is recommending HC. OT is recommending home without any needs. Pt is agreeable to having HC services. Pt is OK w/ being home bound. Pt reports that she does not have a PCP since she recently switched over to Medicare. Pt would like to see the young female doctor at [facility]. CM called [facility] but is closed until Thursday. CM instructed pt to call [facility] to schedule her own PCP appointment. CM made HC referrals. CM to follow. Plan: HC; PT, RN Date Signed: 02/12/2018 02:27 PM Electronically Signed By:CHINTAN Yarbrough
[2018-02-12] MEDS: TOPIRAMATE 25 MG TAB PO SCH (21:32)
[2018-02-13] MEDS: ACETAMINOPHEN 500 MG TAB PO SCH ×2 (05:48→14:56)
[2018-02-13] MEDS: FAMOTIDINE 20 MG TAB PO SCH (08:48)
[2018-02-13] MEDS: SENNOSIDES/DOCUSATE SODIUM TAB PO SCH (08:48)
[2018-02-13] MEDS: GABAPENTIN 300 MG CAP PO SCH (08:48)
[2018-02-13] MEDS: POLYETHYLENE GLYCOL 3350 17 GM PKT PO SCH (08:49)
[2018-02-13] MEDS: ENOXAPARIN 40 MG/0.4 ML SYR SC SCH (08:49)
[2018-02-13 11:18] VITALS: BP 140/70
--- NOTE | 2018-02-13 12:20 | SOAPPROG ---
SOAP Progress Note Assessment/Plan: Assessment: 63 yo F POD #5 L3/4 TLIF, L4/5 hardware removal, L3-5 fusion Plan: neuro: stable and doinge well overall vagal episode 02/10: HR/BP improved, medical workup negative so far, appreciate help from Hospitalists PT/OT x-rays look good HARPER x 1 to thumbprint suction, will remove today LSO brace out of bed scd/sukhwinder/lovenox for dvt prophylaxis discharge home with [facility] if ok with medicine please call with neuro changes discussed with DR black 02/08/18 14:22 02/09/18 07:15 02/09/18 07:16 02/10/18 09:37 02/10/18 09:39 02/11/18 07:21 02/13/18 12:19 Subjective: back pain improving, no leg pain, no weakness. Objective: Vital Signs Temp Pulse Resp BP Pulse Ox 37.1 C 79 15 140/70 H 94 02/13/18 11:16 02/13/18 11:16 02/13/18 11:16 02/13/18 11:16 02/13/18 11:16 Laboratory Results 02/10/18 08:20 02/11/18 04:20 02/12/18 02/13/18 02/14/18 05:59 05:59 05:59 Intake Total 975 200 490 Output Total 690 2290 Balance 285 -2090 490 PT 13.1 SEC (12.0-15.0) 02/10/18 08:20 INR 0.97 (0.83-1.16) 02/10/18 08:20 awake, alert EDMUNDO x 4 + light touch C/D/I ICD10 Worksheet Patient Problems: Problems Problem Status Onset Fusion of spine of lumbar region Acute - ICD10 Problem Qualifiers (1) Fusion of spine of lumbar region
--- NOTE | 2018-02-13 14:18 | HOSPPROG ---
Hospitalist Progress Note Assessment/Plan: 63 yo F s/p lumbar surgery and hardware removal with post op syncopal event # syncope: likely vagal given associated nausea/post operative setting with hypotension. Echo, head CT, chest CTA, tele monitoring all unremarkable. Has not recurred. # acute encephalopathy: presume this is med related as now significantly improved overnight, currently appears completely back to baseline # hypotension: improved on lower doses of pain medications, monitoring, continued on maintenance NS for now # s/p lumbar surgery--per nsg # migraine: improved Patient ok for discharge when cleared by NSG. Subjective: no significant overnight events, patient currently mentating normally Objective: Vital Signs Temp Pulse Resp BP Pulse Ox 37.1 C 79 15 140/70 H 94 02/13/18 11:16 02/13/18 11:16 02/13/18 11:16 02/13/18 11:16 02/13/18 11:16 Laboratory Results 02/10/18 08:20 02/11/18 04:20 02/12/18 02/13/18 02/14/18 05:59 05:59 05:59 Intake Total 975 200 490 Output Total 690 2290 Balance 285 -2090 490 PT 13.1 SEC (12.0-15.0) 02/10/18 08:20 INR 0.97 (0.83-1.16) 02/10/18 08:20 awake alert nad anicteric rrr no mrg cta b soft nt nd no cce warm dry well perfused oriented appropriate ICD10 Worksheet Patient Problems: Problems Problem Status Onset Fusion of spine of lumbar region Acute
--- NOTE | 2018-02-13 15:27 | PDIAF ---
- Diagnosis Code Status: Full Code - Medication Management Discharge Medications: Medications to Continue on Transfer EPINEPHrine [Epipen 0.3 MG] 0.3 mg IM ONCE PRN 01/26/18 [Last Taken 1 Year Ago ~ 02/08/17] Gabapentin [Neurontin 400 MG (*)] 800 mg PO TID 01/26/18 [Last Taken 02/07/18 19 :30] Sumatriptan Succinate [Imitrex] 100 mg PO DAILY PRN 01/26/18 [Last Taken 1 Week Ago ~02/01/18] Tears/Dextran 70/Hypromellose [Natural Balance Tears (*)] 1 drop EACHEYE Q2 PRN 01/26/18 [Last Taken 02/07/18 20:00] Topiramate [Topamax 25MG (*)] 75 mg PO HS 01/26/18 [Last Taken 02/07/18 19:30] Acetaminophen [Tylenol ES 500 mg (*)] 1,000 mg PO Q8HRS tab 02/13/18 [Last Taken Unknown] Cyclobenzaprine [Flexeril 10 MG (*)] 10 mg PO TID #40 tab 02/13/18 [Last Taken Unknown] oxyCODONE IR [Oxycodone Ir (*)] 5 - 10 mg PO Q4HRS PRN tab 02/13/18 [Last Taken Unknown] Discharge Medications: Refer to the Discharge Home Medication list for PRN reason. PICC Care - Routine: N/A - Orders Services needed: Home Care, Physical Therapy, Occupational Therapy Home Care Face to Face: I certify that this patient was under my care and that I had the required [id number] encounter meeting the encounter requirements on the discharge day. My findings support the fact that the patient is homebound as defined in Home Care Face to Face Continued: CMS Chapter 7 Medicare Benefits Manual 30.1.1 , The condition of the patient is such that there exists a normal inability to leave home and consequently, leaving home would require a considerable and taxing effort. Diet Recommendation: no restrictions on diet Diet Texture: Regular Texture Diet Wound Care Instructions: remove steri strips 2 weeks after surgery Equipment: LSO brace when out of bed Additional Instructions: No NSAIDS for six months following any fusion procedure discharge with lumbar fusion instructions from [email or web address] follow up with DR Gillette in 2 weeks follow up with PCP in regards to vagal response - Follow Up Care Current Providers and Referrals: NONE *PRIMARY CARE P,. [Primary Care Provider] - Tom Cerda MD [Medical Doctor] -
--- NOTE | 2018-02-13 18:03 | ASMTLACE ---
LACE Length of stay for Answers: 4-6 days current admission Acuity / Level of Answers: Yes Care: Did the patient have an inpatient admission? Comorbidities - select Answers: Opioid dependence all that apply / Chronic pain Other Notes: HTN, s/p multiple back surgeries # of Emergency department Answers: 0 visits in the last 6 months Score: 12 Date Signed: 02/13/2018 06:02 PM Electronically Signed By:Anna Meeks RN
--- NOTE | 2018-02-13 18:15 | ASDISCHSUM ---
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, DJD, s/p L3-4 TLIF, L4-5 hardware removal, L3-5 fusion, syncope, hypo tension, migraine Placement Information Referral Type:*Home Health Care Services Referral ID:[id number] Provider Name:[facility] Address 1:[address] Phone Number: Address 2: [address] Fax Number: City:[place] Selection Factors:Out of Service Area; Patient /Family Choice State:[place] Patient Contact Information Contact Name:ROBERTTIMMONS Relationship: Address: Work Phone: City: [facility] Phone: State/Zip Code: Email: Financial Information Financial Class:Medicare Primary Plan Desc:MEDICARE INPATIENT Primary Plan Number:[id number] Secondary Plan Desc:ANNA PPO Secondary Plan Number:[id number] Assessment Information LACE LACE Length of stay for Answers: 4-6 days current admission Acuity / Level of Answers: Yes Care: Did the patient have an inpatient admission? Comorbidities - select Answers: Opioid dependence all that apply / Chronic pain Other Notes: HTN, s/p multiple back surgeries # of Emergency department Answers: 0 visits in the last 6 months Score: 12 Date Signed: 02/13/2018 06:02 PM Electronically Signed By:Anna Meeks RN [facility] Progress Note CM Note CM Note Notes: Patient is POD #2 L3/4 TLIF, L4/5 hardware removal, L3-5 fusion. She is stable and doign well overall. She lives independently with her . PT/OT evals are pending, but per RN, patient may not have any discharge needs. Case Management is available to assist if needed. Date Signed: 02/09/2018 12:07 PM Electronically Signed By:Deedee Leblanc RN [facility] Progress Note CM Note CM Note Notes: CM met w/ pt for dispo planning. PT is recommending HC. OT is recommending home without any needs. Pt is agreeable to having HC services. Pt is OK w/ being home bound. Pt reports that she does not have a PCP since she recently switched over to Medicare. Pt would like to see the young female doctor at [facility]. CM called [facility] but is closed until Thursday. CM instructed pt to call [facility] to schedule her own PCP appointment. CM made HC referrals. CM to follow. Plan: HC; PT, RN Date Signed: 02/12/2018 02:27 PM Electronically Signed By:CHINTAN Yarbrough Case Management Discharge Plan Note Case Management Discharge Discharge Order Complete? Answers: Yes Patient to Obtain Answers: Independently Medications Transportation Arranged Answers: Family/Friends Transport will Pick (Date 02/13/2018 12:00 AM & Time) EMTALA Complete Answers: No Notes: N/A Case Management Transport Answers: No Notes: N/A Form Complete Faxed Final Orders Answers: Yes Notes: Sent via [id number], confirmed receipt with Akshat solo Agency/Facility Transfer Answers: Yes Notes: Sent via Report Printed & Faxed to [id number], confirmed Receiving Agency receipt with Akshat solo Family Notified Answers: Yes Notes: at bedside Discharge Comments Notes: Reviewed chart, spoke with LUCRETIA Lakhani regarding discharge plan of care, pt's progress. Per MD notes, pt to initially discharge home independently today with family support. PT/OT notes recommend home health care. Spoke with pt and pt's ; both open to additional support and assistance (PT/OT services). Pt lives with her in [place]. Pt agreed to home care, including homebound status; address and phone number verified. Several referrals previously sent; all declined. Referral sent to [facility] via [id number]. Spoke with Akshat Ortiz; pt accepted. Per Akshat, unable to start services until Thursday02/15/18; pt agreeable. Update provided to pt and family. Pt agrees to establish a PCP on Thursday02/15/18 with [facility]. IM signed, placed in chart; pt provided copy. Pt to follow up as directed. CM business card provided with [facility] contact information. CM available for any further issues or concerns. Discharge Plan: Home with family support and [facility] Date Signed: 02/13/2018 06:12 PM Electronically Signed By:Anna Meeks RN Intervention Information Intervention Type:*IM-Signed Date of Service:02/13/2018 06:02 PM Patient Type:Inpatient Staff Member:LUCRETIA Meeks, Anna Hours: Discipline: Severity: Comment:
--- NOTE | 2018-03-11 09:28 | GDS ---
[f rep st] DISCHARGE SUMMARY HISTORY AND PHYSICAL: Please see admission history and physical. HOSPITAL COURSE: Patient is a 63-year-old female who had a previous lumbar instrumentation and fusio n. She was taken to the operating room on 02/08/2018, where she underwent removal of the L4-5 hardwa re applied by an L3-4 transforaminal lumbar interbody fusion and an L3 to L5 posterior instrumentatio n and fusion. There were no intraoperative complications and she was admitted to the floor for obser vation. She was doing well and on then on postoperative day #2, had an episode of severe postoperati ve bradycardia and hypotension that was thought to be vagal related. Her heart rate was in the 20s i n junctional bradycardia rhythm and her blood pressure was approximately 44/26. Her rapid response t eam was called and her blood pressure and heart rate improved with IV atropine and IV fluids. She wa s followed by Internal Medicine for further workup of her vasovagal episode that was thought to be re lated to her narcotics. She made good progress with physical therapy and occupational therapy. Her workup of a vagal episode was negative. She was discharged home with home health care on 02/13/2018. Patient was discharged with lumbar fusion instructions and recommended she return for a neurosurgic al followup appointment in 10 to 14 days. /[id number]/MODL
--- NOTE | 2018-03-11 10:41 | PQFORM ---
PHYSICIAN QUERY FORM Needs Your Response This query form is being sent to you to assure this patient record is coded properly. Please respond to the question below: ADJUSTO WRITER OPERATOR QUESTION: Dear Terence Kang, It is noted in several SOAP notes that the patient experienced an episode of acute encephalopathy, presumed to be related to her medications. In your opinion, after study, should the diagnosis of acute encephalopathy be included in the discharge statement? X Yes No Other Undetermined Thank you, Lisa Bernal, AARTI, CDIP, B.S. Sugar Cane Planter Machine Operator INSTRUCTIONS FOR RESPONSE: Answer question by clicking on the "Edit Document" button. Move cursor to area below the stars. When complete, hit "Save." Click on the "Sign" button, then click "Sign" again. Type in your PIN and hit "Enter." MTDD
== END 2018-02-13 17:00 | disposition home health service (06) | DRG 453 ==
LOC: F3N 08:37 → F2N 02-10 08:35 → F3N 02-12 17:55
PROVIDERS: ADMIT Neurological Surgery; ATTEND Neurological Surgery
PROC: 0SG1071 Fusion of 2 or more Lumbar Vertebral Joints with Autologous Tissue Substitute, Posterior Approach, Posterior Column, Open Approach (ICD-10-PCS; principal; 2018-02-08 12:45)
PROC: 0SP00AZ Removal of Interbody Fusion Device from Lumbar Vertebral Joint, Open Approach (ICD-10-PCS; principal; 2018-02-08 12:45)
PROC: 8E0WXBZ Computer Assisted Procedure of Trunk Region (ICD-10-PCS; principal; 2018-02-08 12:45)
PROC: 00NY0ZZ Release Lumbar Spinal Cord, Open Approach (ICD-10-PCS; principal; 2018-02-08 12:45)
PROC: 0ST20ZZ Resection of Lumbar Vertebral Disc, Open Approach (ICD-10-PCS; principal; 2018-02-08 12:45)
PROC: 0SG00AJ Fusion of Lumbar Vertebral Joint with Interbody Fusion Device, Posterior Approach, Anterior Column, Open Approach (ICD-10-PCS; principal; 2018-02-08 12:45)
DX: M51.36 Other intervertebral disc degeneration, lumbar region (principal); G93.49 Other encephalopathy; R55 Syncope and collapse; I95.9 Hypotension, unspecified; M48.062 Spinal stenosis, lumbar region with neurogenic claudication; M54.16 Radiculopathy, lumbar region; Z85.3 Personal history of malignant neoplasm of breast; Z90.13 Acquired absence of bilateral breasts and nipples; G43.909 Migraine, unspecified, not intractable, without status migrainosus
CPT/HCPCS: 97116-GP; 97161-GP; 97165-GO; 97530-GP; 97535-GO; C1713; C1762; G8978-GP-CJ; G8979-GP-CI; G8987-GO-CI; G8988-GO-CI; G8989-GO-CI; J0171; J0461; J0690; J1100; J1170; J1650; J2250; J2274; J2370; J2405; J2550; J2704; J2780; J3010; J7060; Q9967